=== PATIENT | female | born 1975 | race Caucasian/White ===

== ENCOUNTER 2024-03-16 23:19 | Emergency (ER) | payer OTHER, BC ==
[2024-03-16] MEDS: Ketorolac 30 MG/ML SDV IM ONE (23:51)
[2024-03-16] MEDS: Diazepam 5 MG Tab PO ONE (23:51)
== END 2024-03-17 00:53 | disposition home or self-care (01) ==
LOC: FB.ED 23:19
DX: M62.830 Muscle spasm of back (principal); E66.9 Obesity, unspecified; Z90.89 Acquired absence of other organs; Z88.8 Allergy status to other drugs, medicaments and biological substances; Z79.899 Other long term (current) drug therapy; Z68.38 Body mass index [BMI] 38.0-38.9, adult
CPT/HCPCS: 96372; 99283; A9270; J1885

== ENCOUNTER 2024-07-12 22:47 | Emergency (ER) | payer OTHER, BC ==
[2024-07-12] MEDS: Aspirin 81 MG Tab.Chew PO ONE (23:20)
[2024-07-12] MEDS: Nitroglycerin 0.4 MG Tab.SL SL ONE (23:21)
[2024-07-12 23:29] LABS: BASOPHILS ABSOLUTE AUTO 0.1 x10-3/uL (0.0-0.1); BASOPHILS PERCENT AUTO 0.9 % (0.2-1.5); EOSINOPHILS ABSOLUTE AUTO 0.1 x10-3/uL (0.0-0.8); HEMATOCRIT 39.6 % (34.2-48.2); HEMOGLOBIN 13.2 g/dL (11.4-15.5); LYMPHOCYTES ABSOLUTE AUTO 2.7 x10-3/uL (1.0-4.4); LYMPHOCYTES PERCENT AUTO 42.2 % (18.4-52.1); MEAN CORPUSCULAR HEMOGLOBIN 27.5 pg (23.9-33.9); MEAN CORPUSCULAR HGB CONC 33.4 g/dL (31.9-34.8); MEAN CORPUSCULAR VOLUME 82.4 fL (76.7-100.5); MEAN PLATELET VOLUME 9.8 fL (7.1-12.4); MONOCYTES ABSOLUTE AUTO 0.4 x10-3/uL (0.3-1.0); NEUTROPHILS ABSOLUTE AUTO 3.1 x10-3/uL (1.5-6.3); NEUTROPHILS PERCENT AUTO 47.9 % (30.8-76.2); PLATELET COUNT,PLT 197 x10(3)uL (151-488); RED CELL DISTRIBUTION WIDTH 13.3 % (12.3-16.5); WHITE BLOOD CELL COUNT,WBC 6.5 x10-3/uL (3.0-10.3)
[2024-07-12 23:41] LABS: C-REACTIVE PROTEIN 1.35 mg/dL (<0.50); TROPONIN I 53.9 pg/mL (4.0-60.3)
[2024-07-12 23:44] LABS: A/G RATIO 0.9; ALANINE AMINOTRANSFERASE,ALT 120 U/L (12-36); ALBUMIN 3.4 g/dL (3.5-5.2); ALKALINE PHOSPHATASE 82 IU/L (56-112); BILIRUBIN TOTAL 0.5 mg/dL (0.1-1.3); BLOOD UREA NITROGEN,BUN 17 mg/dL (7-18); BUN/CREATININE RATIO 14.2 (9-20); CALCIUM 8.4 mg/dL (8.6-10.2); CARBON DIOXIDE,CO2 22 mmol/L (21-32); CHLORIDE,CL 101 mmol/L (100-110); CREATININE 1.2 mg/dL (0.55-1.02); ESTIMATED GFR 56 mL/min (>60); GLUCOSE RANDOM 324 mg/dL (80-116); PROTEIN TOTAL,TP 7.1 g/dL (6.0-8.0); SODIUM,NA 138 mmol/L (135-145)
[2024-07-12 23:45] LABS: ASPARTATE AMNIOTRANSFERASE,AST 197 IU/L (5-25); POTASSIUM,K 2.8 mmol/L (3.5-5.3)
[2024-07-12] MEDS ORDERED: Ketorolac 30 MG/ML SDV IM ONE (23:55)
[2024-07-13] MEDS: Ketorolac 30 MG/ML SDV IVPUSH ONE (00:08)
[2024-07-13] MEDS: Potassium Chloride 20 MEQ Tab.ER PO ONE (00:10)
[2024-07-13 00:32] LABS: BILIRUBIN,URINE NEGATIVE (NEGATIVE); GLUCOSE,URINE >1000 mg/dL (NORMAL); KETONES,URINE 15 mg/dL (NEGATIVE); LEUKOCYTE ESTERASE,URINE NEGATIVE (NEGATIVE); NITRITE,URINE NEGATIVE (NEGATIVE); OCCULT BLOOD,URINE NEGATIVE (NEGATIVE); PROTEIN,URINE TRACE mg/dL (NEGATIVE); UROBILINOGEN,URINE NORMAL (NEGATIVE)
[2024-07-13 00:41] LABS: APPEARANCE,URINE SLIGHTLY CLOUDY (CLEAR); BACTERIA,URINE MODERATE (NS); COLOR,URINE YELLOW (YELLOW); RBC,URINE 0-5 (0-5); SQUAMOUS EPITHELIAL CELLS,UR MODERATE (NS,R,O); WBC,URINE 0-5 (0-5)
[2024-07-13] MEDS: Magnesium Sulfate 2 GM/50 mL 2 GM in Premix Bag 1 BAG IV ONE (02:10)
[2024-07-13] MEDS ORDERED: Heparin Sodium/0.45% NaCl 500 ML IV SCH (02:15)
[2024-07-13 02:23] LABS: INR 0.95 (1.00-1.24); PROTHROMBIN TIME 9.9 sec (9.0-11.1); PTT,PARTIAL THROMBOPLSTIN TIME 25.2 SECONDS (24.4-33.2)
[2024-07-13] MEDS ORDERED: Heparin Sodium 5,000 Units/ML Vial SUBCUT ONE (02:30)
[2024-07-13] MEDS ORDERED: Heparin Sodium/0.45% NaCl 25,000 UNITS/500 ML BAG IV SCH (02:30)
[2024-07-13] MEDS: Heparin Sodium 5,000 Units/ML Vial IVPUSH ONE (02:33)
[2024-07-13] MEDS: Heparin Sodium/0.45% NaCl 25,000 UNITS/500 ML BAG IV SCH (02:56)
== END 2024-07-13 03:10 ==
LOC: FB.ED 22:47
DX: I21.4 Non-ST elevation (NSTEMI) myocardial infarction (principal); E11.65 Type 2 diabetes mellitus with hyperglycemia; Z87.891 Personal history of nicotine dependence; E87.6 Hypokalemia; R82.4 Acetonuria; R79.82 Elevated C-reactive protein (CRP); E83.42 Hypomagnesemia; R94.5 Abnormal results of liver function studies; E88.09 Other disorders of plasma-protein metabolism, not elsewhere classified; E66.9 Obesity, unspecified; Z68.43 Body mass index [BMI] 50.0-59.9, adult; Z88.8 Allergy status to other drugs, medicaments and biological substances; Z79.899 Other long term (current) drug therapy
CPT/HCPCS: 36415; 71046; 80053; 81001; 83735; 84484; 85025; 85379; 85610; 85730; 86140; 93005; 93010; 96365; 96368; 96375; 99285; 99285-25; A9270-GY; J1644; J1885; J3475